=== PATIENT | female | born 1965 | race Caucasian/White ===

== ENCOUNTER 2019-11-17 10:32 | Emergency (ER) | payer SELFPAY | END 2019-11-17 12:15 | disposition home or self-care (01) | LOC: NAV ERS 10:32 | DX: J04.0 Acute laryngitis (principal); R51 Headache; E11.9 Type 2 diabetes mellitus without complications; F17.210 Nicotine dependence, cigarettes, uncomplicated | CPT/HCPCS: 87081; 87430; 87804; 99283 ==

== ENCOUNTER 2019-11-26 11:10 | Emergency (ER) | payer SELFPAY ==
[2019-11-26] MEDS ORDERED: Acetaminophen 500 MG TAB ONE (11:48)
[2019-11-26] MEDS ORDERED: Bupivacaine 0.5% 10 ML VIAL ONE (11:48)
[2019-11-26] MEDS ORDERED: Penicillin V Potassium 250 MG TAB ONE (12:37)
== END 2019-11-26 12:48 | disposition home or self-care (01) ==
LOC: NAV ERS 11:10
DX: K04.7 Periapical abscess without sinus (principal); K02.9 Dental caries, unspecified; E11.9 Type 2 diabetes mellitus without complications; F17.210 Nicotine dependence, cigarettes, uncomplicated; Z71.6 Tobacco abuse counseling
CPT/HCPCS: 41800; 99406; J3490